=== PATIENT | male | born 1975 | race Caucasian/White ===

== ENCOUNTER 2017-01-13 08:38 | Emergency (ER) | payer OTHER, BC ==
--- NOTE | 2017-01-13 09:23 | ER Document Report ---
ED Medical Screen (RME) - General Stated Complaint: FINGER INJURY Notes: onset today drilbit into finger sensation intact, mild bleeding denies pain not UTD on tetanus last meal at 3am I have greeted and performed a rapid initial assessment of this patient. A comprehensive ED assessment and evaluation of the patient, analysis of test results and completion of the medical decision making process will be conducted by additional ED providers. - Related Data Allergies/Adverse Reactions: Penicillins Allergy (Verified 01/13/17 09:20) Physical Exam - Vital signs Vitals: Temp Pulse Resp BP Pulse Ox 99.0 F 105 H 16 125/99 H 98 01/13/17 08:47 01/13/17 08:47 01/13/17 08:47 01/13/17 08:47 01/13/17 08:47 Course - Vital Signs Vital signs: Temp Pulse Resp BP Pulse Ox 99.0 F 105 H 16 125/99 H 98 01/13/17 08:47 01/13/17 08:47 01/13/17 08:47 01/13/17 08:47 01/13/17 08:47
[2017-01-13] MEDS ORDERED: DIPH/PERTUSS(ACELL)/TETANUS VAC/PF 0.5 ML SYR (>=10YO) IM ONE (09:25)
[2017-01-13] MEDS ORDERED: LIDOCAINE 1% INJ-PF (10 MG/ML) 30 ML SDV INJ ONE (09:39)
--- NOTE | 2017-01-13 09:48 | ER Document Report ---
ED General - General Chief Complaint: Finger Injury Stated Complaint: FINGER INJURY Time seen by provider: 09:45 Mode of Arrival: Ambulatory Information source: Patient Notes: 41-year-old male had a drill bit penetrate his glove into his left index finger approximately 8:30 this morning. Patient denies injury elsewhere. He reports decreased range of motion at the DIP joint. He reports intact sensation in the fingertip. Physical Exam: General: Alert, appears well. HEENT: Normocephalic. Atraumatic. Neck: Supple. Non-tender. Respiratory: No respiratory distress. Clear and equal breath sounds bilaterally. Cardiovascular: Regular rate and rhythm. Abdominal: Normal Inspection. Soft, non-tender. No distension. Normal Bowel Sounds. Back: Non-tender. No deformity or step off. Left hand is penetrating injury left index finger. The drill bit penetrates dorsally over the middle phalanx of left index finger. There is no active bleeding. Has brisk capillary refill to the fingertip. Left long finger has superficial abrasion on the dorsum of the finger assist with the tip of the drill bit by a scraped Neurological: Speech clear mentation normal Psychological: Normal affect. Normal Mood. Skin: Warm. Dry. Normal color. TRAVEL OUTSIDE OF THE [place] IN LAST 30 DAYS: No - Related Data Allergies/Adverse Reactions: Penicillins Allergy (Verified 01/13/17 09:20) Past Medical History - Social History Smoking Status: Current Every Day Smoker Chew tobacco use (# tins/day): No Frequency of alcohol use: Occasional Drug Abuse: None Family History: Malignancy - Mother Patient has suicidal ideation: No Patient has homicidal ideation: No Renal/ Medical History: Denies: Hx Peritoneal Dialysis Review of Systems - Review of Systems Constitutional: denies: Chills, Fever EENT: denies: Ear pain, Throat pain Cardiovascular: denies: Chest pain Respiratory: denies: Cough Gastrointestinal: denies: Abdominal pain Genitourinary: denies: Burning Musculoskeletal: denies: Back pain Hematologic/Lymphatic: denies: Swollen glands Neurological/Psychological: denies: Weakness, Numbness Physical Exam - Vital signs Vitals: Temp Pulse Resp BP Pulse Ox 99.0 F 105 H 16 125/99 H 98 01/13/17 08:47 01/13/17 08:47 01/13/17 08:47 01/13/17 08:47 01/13/17 08:47 Course - Re-evaluation Re-evalutation: 01/13/17 11:54 Patient tolerated removal foreign body without difficulty. He'll be given number for Dr. elder follow-up in 2 days for recheck given that it is a hand injury and placed on clindamycin - Vital Signs Vital signs: Temp Pulse Resp BP Pulse Ox 99.0 F 105 H 16 125/99 H 98 01/13/17 08:47 01/13/17 08:47 01/13/17 09:30 01/13/17 08:47 01/13/17 08:47 Procedures - Laceration/Wound Repair Left Finger Time completed: 10:30 Wound length (cm): 1 Wound's Depth, Shape: Superficial, Other Laceration pre-procedure: Sterile PPE donned, Betadine prep applied Anesthetic type: 1% Lidocaine Volume Anesthetic (mLs): 4 Wound explored: Clean Irrigated w/ Saline (mLs): 100 Wound Debrided: Minimal Post-procedure NV exam normal: No - fingertip numb after digital block Complications: No Notes: 01/13/17 11:52 Patient had digital block applied 1% plain lidocaine. Sensation fingertip was intact prior to digital block. Foreign body removed with a tapering metal piece with a tip that would hold a small drill bit that piece was already removed by patient. There were no serrated edges are sharp edges on the foreign body that was removed which was done with traction without difficulty. After this was removed the patient demonstrated intact function to both superficial and deep flexor and extensor tendons. Wound tract was irrigated with saline via Angiocath and no foreign bodies were identified. Repeat x-ray also showed no foreign body. Discharge - Discharge Clinical Impression: Foreign body (FB) in soft tissue Condition: Stable Disposition: HOME, SELF-CARE Additional Instructions: HOME CARE INSTRUCTIONS & INFORMATION: Thank you for choosing us for your medical needs. We hope you're satisfied with the care you received. After you leave, you must properly care for your problem and, at the same time, observe its progress. Any condition can change. Some illnesses can change rapidly over hours or days. If your condition worsens, return to the Emergency Department or see your physician promptly. ABOUT YOUR X-RAYS AND EKG'S: If you had an EKG or X-rays taken, they have been read by the Emergency Physician. The X-rays and EKG's will also be read by a Radiologist or Deliver Driver within 24 hours. If discrepancies are noted, you will be notified by telephone. Please be certain the ED has a correct telephone number & address where you can be reached. Also, realize that some fractures or abnormalities do not show up on initial X-rays. If your symptoms continue, see your physician. ABOUT YOUR LABORATORY TEST: If you had laboratory tests, the results have been reviewed by the Emergency Physician. Some test results (for example cultures) may not be available for several days. You will be contacted if any test result shows you need additional treatment. Please be certain the ED has a correct telephone number and address where you can be reached. ABOUT YOUR MEDICATIONS: You will receive instructions on how to take your medicine on the prescription label you receive. Additional information may be provided by the Pharmacy. If you have questions afterwards, call the ED for clarification or further instructions. Some prescribed medications may cause drowsiness. Do not perform tasks such as driving a car or operating machinery without consulting your Pharmacist. If you feel you need a refill of pain medication, your condition will need re-evaluation. Please do not call for a refill of any medication. ABOUT YOUR SIGNATURE: Signature of this document acknowledges to followin. Understanding that you received emergency treatment and that you may be released before al medical problems are known or treated. Please be certain the ED has a correct phone number & address where you can be reached. 2. Acknowledgement that you will arrange for follow-up care as recommended. 3. Authorization for the Emergency Physician to provide information to your follow-up Physician in order to maximize your care. AT ANY TIME, IF YOUR SYMPTOMS CHANGE SIGNIFICANTLY OR WORSEN OR YOU DEVELOP NEW SYMPTOMS, RETURN TO THE EMERGENCY DEPARTMENT IMMEDIATELY FOR RE-EVALUATION. OUR GOAL IS TO PROVIDE EXCELLENT MEDICAL CARE! WE HOPE THAT WE HAVE MET YOUR EXPECTATIONS DURING YOUR EMERGENCY DEPARTMENT VISIT AND THAT YOU FEEL YOU HAVE RECEIVED EXCELLENT CARE! Follow-up with Dr. Crowder, hand surgeon in 2 days. Keep wounds clean and dry. Return to Emergency Department right away for worse pain redness or swelling to the finger Prescriptions: Clindamycin HCl 300 mg PO TID #30 capsule Referrals: [facility] [employer] [Primary Care Provider] - Follow up as needed MARLEE CROWDER DO [ACTIVE STAFF] - 01/15/17
[2017-01-13 11:53] VITALS: BP 130/91
== END 2017-01-13 12:09 | disposition home or self-care (01) ==
LOC: ER 08:38
PROC: 0JCK0ZZ Extirpation of Matter from Left Hand Subcutaneous Tissue and Fascia, Open Approach (ICD-10-PCS; principal; 2017-01-13)
DX: S61.241A Puncture wound with foreign body of left index finger without damage to nail, initial encounter (principal); W29.8XXA Contact with other powered hand tools and household machinery, initial encounter; Z23 Encounter for immunization
CPT/HCPCS: 99283; 90471; 73140; 90715; 20103; J3490